=== PATIENT | female | born 1970 | race Caucasian/White ===

== ENCOUNTER 2018-09-06 13:06 | Outpatient (REF) | payer OTHER, SELFPAY ==
[2018-09-06 18:49] LABS: TSH (W/Ref FT4) 1.67 uIU/mL (0.358-3.74)
[2018-09-06 19:31] LABS: ESR 16 MM/HR (0-20)
[2018-09-06 19:36] LABS: HCG Qual (Serum) Negative
[2018-09-10 09:27] LABS: Cyclic Citrullinated Peptide <2.5 U/mL (<5.0)
[2018-09-10 13:50] LABS: ANA Interpretation Positive (NEGAT); ANA Titer Pattern 1:80 Speckled
== END 2018-09-06 13:26 ==
LOC: NCHCN 13:06
PROVIDERS: PCP Family Medicine; Visit Provider Family Medicine
DX: M53.3 Sacrococcygeal disorders, not elsewhere classified (principal); N92.6 Irregular menstruation, unspecified
CPT/HCPCS: 85652; 86200; 84443; 84703; 86038

== ENCOUNTER 2019-04-18 16:44 | Outpatient (REF) | payer OTHER, SELFPAY ==
[2019-04-18 18:56] LABS: Mean Corp. HGB Concentration 32.4 g/dL (32.0-36.0); Mean Corpuscular Hemoglobin 26.1 pg (27.0-33.0); Mean Corpuscular Volume 80.4 fL (80-95); Platelet Count 350 x1000/uL (130-400); RBC Distribution Width 13.7 % (11.7-14.6); White Blood Cell Count 9.27 k/cumm (4.4-10.8)
[2019-04-18 19:15] LABS: Ferritin 23 ng/mL (8-388)
[2019-04-18 20:42] LABS: Hemoglobin A1C 5.8 % (4.5-6.2)
[2019-04-18 20:58] LABS: Vitamin D 25 Total 34.4 ng/ml (30-100)
== END 2019-04-18 17:04 ==
LOC: NCHCN 16:44
PROVIDERS: PCP Family Medicine; Visit Provider Family Medicine
DX: D50.9 Iron deficiency anemia, unspecified (principal); R73.01 Impaired fasting glucose; E55.9 Vitamin D deficiency, unspecified
CPT/HCPCS: 82306; 85027; 82728; 83036

== ENCOUNTER 2019-05-01 00:38 | Outpatient (CLI) | payer OTHER, SELFPAY ==
--- NOTE | 2019-05-01 11:34 | DI.MAMMO_ITS ---
SYMPTOMS/DIAGNOSIS: SCREENING, PENDING SALE TO [facility], Z00.00 MAMMOGRAM: Mammograms were interpreted according to the usual protocol including computer analysis with CAD system, tomosynthesis and C view imaging. The breasts are of moderate density with fairly symmetrical distribution of fibroglandular tissue. No dominant mass or clumped microcalcification is identified in either breast. Current examination is compared with previous examinations including April 2018 and there has been no gross interval change in appearance in comparison with the previous studies. CONCLUSION: No specific evidence of malignancy at this time. Routine screening examinations are suggested at yearly intervals due to the family history of breast carcinoma. Category 1, breast density category B. MQSA ASSESSMENT OF FINDINGS: Negative. Category 1. Patient will receive a letter notifying them of these results. BI-RADS category B. There are scattered areas of fibroglandular density.
== END 2019-05-01 00:58 ==
PROVIDERS: PCP Family Medicine; Visit Provider Family Medicine
DX: Z00.00 Encounter for general adult medical examination without abnormal findings (principal); Z12.31 Encounter for screening mammogram for malignant neoplasm of breast; Z80.3 Family history of malignant neoplasm of breast
CPT/HCPCS: 77063; 77067

== ENCOUNTER 2020-04-29 18:27 | Outpatient (REF) | payer OTHER, SELFPAY ==
[2020-04-29 16:35] LABS: HCT 34.9 % (36.0-46.0); HGB 10.9 g/dL (12.0-15.5); Mean Corp. HGB Concentration 31.2 g/dL (32.0-36.0); Mean Corpuscular Hemoglobin 23.6 pg (27.0-33.0); Mean Corpuscular Volume 75.7 fL (80-95); Mean Platelet Volume 11.3 fL (8.0-11.0); Platelet Count 404 x1000/uL (130-400); RBC 4.61 m/cumm (4.00-5.20); RBC Distribution Width 14.4 % (11.7-14.6)
[2020-04-29 16:47] LABS: Calculated LDL 103 mg/dL (<100); Cholesterol 164 mg/dL (<200); Ferritin 11 ng/mL (8-252); HDL Cholesterol 50 mg/dL (40-60); TSH (W/Ref FT4) 1.32 uIU/mL (0.36-3.74); Triglyceride 57 mg/dL (<150)
== END 2020-04-29 18:47 ==
LOC: NCHCN 18:27
PROVIDERS: PCP Family Medicine; Visit Provider Family Medicine
DX: N92.0 Excessive and frequent menstruation with regular cycle (principal); D50.9 Iron deficiency anemia, unspecified; R53.83 Other fatigue
CPT/HCPCS: 80061; 85027; 82728; 84443

== ENCOUNTER 2020-05-13 01:55 | Outpatient (CLI) | payer OTHER, SELFPAY ==
--- NOTE | 2020-05-13 12:30 | DI.US_ITS ---
EXAM: US PELVIS TRANSVAGINAL CLINICAL HISTORY: LOST IUD, DYSFUNCTIONAL UTERINE BLEEDING, T83.9XXA, N93.8 TECHNIQUE: Transabdominal and transvaginal imaging was performed using standard protocol. COMPARISON: No exams were available for comparison FINDINGS: KIDNEYS: Kidneys are symmetric in size. No evidence of renal calculi. No evidence of hydronephrosis. No renal mass or cyst identified. UTERUS: Anteverted. 11.9 x 5.8 x 7 cm Endometrium: 2.4 cm. The IUD was not visualized. Myometrium: 2.3 centimeter anterior lower uterine segment fibroid. Cervix: Small nabothian cysts. OVARIES: Right: Cyst or mass: Overall 10 centimeter cyst with multiple peripheral adjacent daughter cysts. Th ere is a solid, avascular component along the wall measuring 3 x 1.3 x 1.4 cm. Left: Cyst or mass: 5 centimeter cyst with a daughter cyst and area of mural nodularity. DOPPLER: Color: Symmetric and uniform flow to both ovaries. No hyperemia. Duplex: Normal ovarian arterial waveforms visualized. CUL-DE-SAC: Free fluid: None. IMPRESSION: 1. The IUD was not identified. The endometrial stripe appears thickened. 2. Bilateral ovarian cysts, right larger than left, with solid mural components and peripheral daught er cysts. An MRI could be considered for further evaluation. DATA REPOSITORY:
== END 2020-05-13 02:15 ==
PROVIDERS: PCP Family Medicine; Visit Provider Obstetrics & Gynecology
DX: N93.8 Other specified abnormal uterine and vaginal bleeding (principal); T83.32XA Displacement of intrauterine contraceptive device, initial encounter; D25.9 Leiomyoma of uterus, unspecified; N83.291 Other ovarian cyst, right side; N83.292 Other ovarian cyst, left side
CPT/HCPCS: 76830; 76856

== ENCOUNTER 2020-06-01 01:22 | Outpatient (CLI) | payer OTHER, SELFPAY ==
--- NOTE | 2020-06-01 13:57 | DI.MAMMO_ITS ---
EXAM: MAMMO SCREENING CLINICAL HISTORY: SCREENING, Z12.39 TECHNIQUE: Mammograms were interpreted according to the usual protocol including computer analysis w ith CAD system, tomosynthesis and C-view imaging. COMPARISON: 2012 through 2018 FINDINGS: The breasts are composed of scattered fibroglandular densities, Breast Density category B. No suspicious masses or suspicious microcalcifications are seen. No skin thickening or abnormal axillary lymph nodes are seen. There has been no significant change from prior exams. IMPRESSION: BI-RADS Category 1, negative mammogram. Yearly screening mammography is recommended. Breast Density Category B, scattered fibroglandular densities.
== END 2020-06-01 01:42 ==
PROVIDERS: PCP Family Medicine; Visit Provider Family Medicine
DX: Z12.31 Encounter for screening mammogram for malignant neoplasm of breast (principal); R92.2 Inconclusive mammogram
CPT/HCPCS: 77063; 77067

== ENCOUNTER 2020-11-11 12:25 | Outpatient (REF) | payer SELFPAY ==
--- OUTSIDE RECORDS SUMMARY | 2020-11-11 12:34 | XMS_ITS ---
:1970 Author Care Team Providers Name Role Phone MATTHEW BRISENO Primary Care Provider [phone] Allergies Code Code System Name Reaction Severity Status Onset NKDA ? Medications Name Status Start Date Stop Date ? ? acetaminophen Active ? Not available ferrous gluconate 240 mg (27 mg iron) tablet Active ? Not available Take 1 tablet every day by oral route. ibuprofen 800 mg tablet Active ? Not avai lable Take 1 tablet 3 times a day by oral route. Mirapex 0.125 mg tablet Active ? Not avai lable Take 1 tablet every day by oral route in the evening. Mirena 20 mcg/24 hours (6 yrs) 52 mg intrauterine device Active ? Not available Take by intrauterine route. omeprazole 20 mg capsule,delayed release Active ? Not available Take 1 capsule every day by oral route. oxycodone Active ? Not available 5 mg as needed for pain ProAir HFA 90 mcg/actuation aerosol inhaler Active ? Not available Inhale 2 puffs every 4-6 hours by inhalation route. ProctoCare-HC 2.5 % rectal cream with applicator Active ? Not available Insert as needed by rectal route. Vitamin C 500 mg tablet Active ? Not avai lable Take 1 tablet every day by oral route. Vitamin D Active ? Not available 1000 units oral tablet 1 daily Problems Name Status Onset Date Source ? Vitamin D Deficiency Active 06/12/2020 ? Morbid Obesity Active 06/12/2020 ? Anemia Active 06/12/2020 ? Restless Legs Active 06/12/2020 ? Gastroesophageal Reflux Disease Active 06/12/2020 ? Menorrhagia Active 06/12/2020 ? Sacroiliac Joint Pain Active 06/12/2020 ? Fatigue Active 06/12/2020 ? Malaise Active 06/12/2020 ? Prediabetes Active 06/12/2020 ? IUD - Defaulted from Check Active 06/12/2020 ? Varicose Veins of Lower Extremity with Ulcer Active 05/2020 ? Obstructive Sleep Apnea Syndrome Active ? ? Procedures Date Name Performed by ? 06/12/2020 Polysomnogram Information not avai lable Results Lab Results None recorded. Past Encounters 10/19/2020 Obstructive Sleep Apnea Syndrome Jessica Biggs FUR FINISHER SEAMSTRESS: [address], [place] [address], Ph. 06/12/2020 Obstructive Sleep Apnea Syndrome; Restle ss Legs Jessica Biggs F[employer] FINISHER SEAMSTRESS: [address], [place] [address], Ph. Social History Tobacco Smoking Status Never Smoker Vaccine List None recorded. Plan of Care Reminders Provider Appointments None ? ? recorded. Lab None ? ? recorded. Referral None ? ? recorded. Procedures None ? ? recorded. Surgeries None ? ? recorded. Imaging None ? ? recorded. Vitals 10/19/2020 01:15PM Office 30 Height Weight BMI Blood Pressure 160.02 cm 119.75 kg 46.8 kg/m2 140/68 mm[Hg] 06/12/2020 09:30AM New Patient 47 Height Weight BMI Blood Pressure 160.02 cm 118.57 kg 46.3 kg/m2 141/72 mm[Hg]
--- OUTSIDE RECORDS SUMMARY | 2020-11-11 12:34 | XMS_ITS | Encounter Summary ---
:1970 Author Care Team Providers Name Role Phone Tessie Phelps Primary Care Provider [phone] Reason for Visit None recorded. Assessment and Plan 1. Obstructive sleep apnea syndr ome JOAQUIN diagnosed in 2010 with an AHI of 10.9/hr. She had been treated with both CPAP and an oral appliance in the past but was untreated for years. She had very poor tolerance the the oral applia nce. She had a repeat PSG 07/08/20 with an AHI of 7.9/hr. She recently started back on CPAP 6-16 cm and has excellent compliance and reduction in AHI. She has noted her snoring is gone with CPAP and she i s feeling better rested. Continued use o f CPAP is recommended. She is encouraged to keep up with the routine maintenance of the machine and to clean and replace parts as indicated. I will see her back i n one year. She is asked to call the i jeremiah for any sleep related questions or concerns. I provided greater than 25 minutes in th e care of this patient, more than half the time was spent in [id number] counseling. Discussion Note: None recorded.Patient educational handouts: No information available. Plan of Care Reminders Provider Appointments Office 30 10/18/2021 Garrison Biggs, 12:30PM CALLISTHENICS INSTRUCTOR Lab None ? ? recorded. Referral None ? ? recorded. Procedures None ? ? recorded. Surgeries None ? ? recorded. Imaging None ? ? recorded. Medications Name Start Date ? ? acetaminophen ? ferrous gluconate 240 mg (27 mg iron) tablet ? Take 1 tablet every day by oral route. ibuprofen 800 mg tablet ? Take 1 tablet 3 times a day by oral route. Mirapex 0.125 mg tablet ? Take 1 tablet every day by oral route in the evening. Mirena 20 mcg/24 hours (6 yrs) 52 mg intrauterine evens ce ? Take by intrauterine route. omeprazole 20 mg capsule,delayed release ? Take 1 capsule every day by oral route. oxycodone ? 5 mg as needed for pain ProAir HFA 90 mcg/actuation aerosol inhaler ? Inhale 2 puffs every 4-6 hours by inhalation route. ProctoCare-HC 2.5 % rectal cream with applicator ? Insert as needed by rectal route. Vitamin C 500 mg tablet ? Take 1 tablet every day by oral route. Vitamin D ? 1000 units oral tablet 1 daily Medications Administered None recorded. Vitals Height Weight BMI Blood Pressure 5 ft 3 in 264 lbs 46.8 kg/m2 140/68 mm[Hg] Results Lab Results None recorded. Allergies Code Code System Name Reaction Severity Onset NKDA ? ? ? Problems Name Status Onset Date Source ? [...] Sleep Apnea Syndrome Active ? ? Procedures None recorded. Vaccine List None recorded. Social History Tobacco Smoking Status Never Smoker Hard of hearing or deaf in one or N both ears? Alcohol intake None Live alone or with others? with others Notes: wit h and 2 sons Animal exposure? Y Notes: cat and do g Caffeine intake Occasional Notes: tea 1 cup a day Are you currently employed? 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 Past Encounters 10/19/2020 Obstructive Sleep Apnea Syndrome Jessica Biggs, CALLISTHENICS INSTRUCTOR: [address] [place] [address], Ph. History of Present Illness Note: <p>Veronica Maria Ines has a visit for PSG results.</p><p>
</p><p>Veronica was seen by me on 06/12/20. She has a medical history to include morbid obesity, pre-DM, vitamin D deficiency, varicose veins, RLS, GERD, anemia, SI joint pain and JOAQUIN. PSG 06/23/11 (BMI 44.8), AHI 10.9/hr, REM AHI 39.1/hr, sp02 toni 89%, PLMi 1.7/hr. Titration 07/29/11 (BMI 44.8), CPAP 14 cm was successful but only very brief REM seen at this setting, PLMi 1.6/hr, CPAP 14-18 cm recommended. Oral appliance adjustment study 08/02/13 (BMI 45.5), appliance at 18 turns with some residual events, there was lateral REM at this setting.</p><p>
</p><p>Last visit Veronica reported had not treated her sleep apnea in many years. She didn't like the CPAP mask because the irritated her nose and the CPAP was noisy so she got sick of using it. She tried an appliance and didn't like it at all, she found it very uncomfortable and never wants to use one again.</ p><p>
</p><p>She noted symptoms of restless sleep, daytime fatigue, and snoring. 07/20/2020: PSG 07/08/2020 (BMI 46.23), AHI 7.9/hr, REM AHI 29.7/hr, sp02 toni 84%, PLMi 0/hr, CPAP 6-16 cm ordered on 07/20/20.</p><p>
</p><p>Veronica tells me she has been using CPAP every night. She is using an [place] View and likes this better than masks she has used in the past. When she gets a hot flash she sometimes has to remove it. She says she tries toget at least 5-6 hours of use each night and once she reaches that she removes. The air pressure feels fine at times and other times like it is too strong so she has to use the ramp. She is not waking finding the pressure too high. She is no longer snoring with CPAP and her is now sleeping better She thinks she is feeling more rested since starting CPAP as well. She was just started on [place] [facility] and hopes to see improvement within a week or so. </p><p>
& lt;/p><p>
</p><p>ESS today 02/27</p><p>COMPLIANCE REVIEW: {{09/19/20-10/18/20# DATES}}, Used {{30# 25 30}}/30 days, average use {{6# 5 6}} hours {{3# number}} minutes a night, mean pressure {{8.4# 8 9}}cm, 90 th percentile pressure {{10.5# 9 10}}cm, time in large air leak {{0# 5 10}} minutes, AHI {{1 * 2}}/hour.</p>Review of Systems: ROS as noted in the HPI Review of Systems None recorded. Physical Exam ? Notes: <p>General: A&O, well groome d {{over weight obese * morbidly obese normal weight thin}}.
HEAD: no rmocephalic & atraumatic.
EYES: non icteric.
LUNGS: CTA all f ields. Good air movement.
CARDIO: RRR without murmur, gallop or thrill.
NEURO: A&O. Normal gait.
PSYCH: Normal mood and affect.
CUTANEOUS: no overt lesions or rashes</p>
[2020-11-11 14:18] LABS: Calculated LDL 111 mg/dL (<100); Cholesterol 177 mg/dL (<200); HDL Cholesterol 56 mg/dL (40-60); Triglyceride 51 mg/dL (<150)
[2020-11-11 14:37] LABS: Hemoglobin A1C 5.9 % (<5.7)
== END 2020-11-11 12:45 ==
LOC: NCHCN 12:25
PROVIDERS: PCP Family Medicine; Visit Provider Family Medicine
DX: Z00.00 Encounter for general adult medical examination without abnormal findings (principal); R73.03 Prediabetes; Z13.220 Encounter for screening for lipoid disorders
CPT/HCPCS: 80061; 83036

== ENCOUNTER 2021-07-02 15:13 | Outpatient (REF) | payer OTHER, SELFPAY ==
--- NOTE | 2021-07-02 15:30 | PAPFT_PTH ---
PATIENT: Veronica Spann LOC: [facility]#:[id number] AGE/SX: 50/F ROOM: RE07/02/[address]: Tessie Phelps : 1970 BED: DIS: 07/02/2021 SPEC #: [id number] RECD: 07/05/21 12:48 STATUS: FERNANDO REDebbi #: [id number] DHRUV: 07/02/21 15:[address]: Tessie Phelps DEPT: [facility] Cytology RECD BY: Ayesha Blackman Tissues: 1 - CX/ENDOCX FOR PAP SMEARS Procedures: PAP THIN PREP/UVM Screening HPV DNA PROBE Comments: [id number]
[2021-07-02 21:16] LABS: HGB 13.5 g/dL (11.2-15.7); MCH 26.4 pg (27.0-33.0); MCHC 31.4 % (32.0-36.0); MPV 10.9 fL (8.0-11.0); Platelet Count 355 10^3/uL (130-400); RBC 5.12 10^6/uL (3.93-5.22); RDW 12.9 % (11.7-14.6); RDW-SD 39.4 fL; WBC 10.01 10^3/uL (4.4-10.8)
[2021-07-02 21:33] LABS: ALT 40 U/L (14-59); AST 29 U/L (15-37); Albumin 3.9 g/dL (3.4-5.0); Alkaline Phosphatase 107 U/L (46-116); Anion Gap 9.1 mmol/L (3-11); BUN 16 mg/dL (7-18); Bilirubin, Total 0.3 mg/dL (0.2-1.0); CO2 26.9 mmol/L (21.0-32.0); CREATININE 0.9 mg/dL (0.55-1.02); Calcium 9.3 mg/dL (8.5-10.1); Chloride 106 mmol/L (98-107); Glucose 119 mg/dL (74-106); Potassium 4.3 mmol/L (3.5-5.1); Sodium 142 mmol/L (136-145); TSH (W/Ref FT4) 1.87 uIU/mL (0.36-3.74); Total Protein 7.2 g/dL (6.4-8.2)
[2021-07-02 22:15] LABS: Ferritin 67 ng/mL (8-252); Folate 18.7 ng/mL (8.6-20.0); Vitamin B12 393 pg/mL (193-986)
[2021-07-05 02:42] LABS: Vitamin D 25 Total 47.5 ng/mL (30-100)
[2021-07-05 10:13] LABS: Hepatitis C Ab w Rflx HCV PCR Negative (Negative)
[2021-07-05 10:29] LABS: HIV-1/2 Ag & Ab Screen Negative (Negative)
== END 2021-07-02 15:14 | disposition home or self-care (01) ==
LOC: NCHCN 15:13
PROVIDERS: PCP Family Medicine; Visit Provider Family Medicine
DX: D64.9 Anemia, unspecified (principal); R53.83 Other fatigue; R73.03 Prediabetes; E55.9 Vitamin D deficiency, unspecified; Z00.00 Encounter for general adult medical examination without abnormal findings; Z12.4 Encounter for screening for malignant neoplasm of cervix; Z11.51 Encounter for screening for human papillomavirus (HPV)
CPT/HCPCS: 80053; 82306; 85027; 86803; 87389; 88142; 82607; 82728; 82746; 83036; 84443; 87624

== ENCOUNTER 2021-07-13 02:37 | Outpatient (CLI) | payer OTHER, SELFPAY ==
--- NOTE | 2021-07-13 | DI.MAMMO_ITS ---
Exam(s) MAMMO SCREENING EXAM: MAMMO SCREENING CLINICAL HISTORY: SCREENING,Z12.39 TECHNIQUE: Mammograms were interpreted according to the usual protocol including computer analysis w [employer] CAD system, tomosynthesis and C-view imaging. COMPARISON: 2012 through 2019 FINDINGS: The breasts are composed of mainly fatty density , Breast Density category A. No suspicious masses or suspicious microcalcifications are seen. No skin thickening or abnormal axillary lymph nodes are seen. There has been no significant change from prior exams. IMPRESSION: BI-RADS Category 1, Negative mammogram Yearly screening mammography is recommended. Breast Density - Category A, fatty density. A negative radiographic report should not delay biopsy if a dominant or clinically suspicious mass is present. Up to ten percent of cancers are not identified on mammography. A negative report may reinforce clinical impression. Adenosis and dense breasts may obscure an underlying neoplasm. False positive reports average 6 to 10%. Patient will receive a letter notifying them of these results.
== END 2021-07-13 02:57 ==
PROVIDERS: PCP Family Medicine; Visit Provider Family Medicine
DX: Z12.31 Encounter for screening mammogram for malignant neoplasm of breast (principal)
CPT/HCPCS: 77063; 77067

== ENCOUNTER 2021-07-28 12:22 | Outpatient (REF) | payer OTHER, SELFPAY ==
[2021-07-28 20:15] LABS: Vitamin B12 711 pg/mL (193-986)
== END 2021-07-28 12:23 | disposition home or self-care (01) ==
LOC: NCHCN 12:22
PROVIDERS: PCP Family Medicine; Visit Provider Family Medicine
DX: R53.83 Other fatigue (principal)
CPT/HCPCS: 82607

== ENCOUNTER 2021-09-17 01:14 | Outpatient (CLI) | payer OTHER, SELFPAY ==
--- NOTE | 2021-09-17 09:36 | DI.RAD_ITS ---
Exam(s) XR CHEST 2V PA LATERAL EXAM: XR CHEST 2V PA LATERAL CLINICAL HISTORY: COUGH, R05, NEG FOR COVID TECHNIQUE: 2D digital imaging was performed. COMPARISON: No exams were available for comparison FINDINGS: The heart is not enlarged. The lungs are clear and well expanded. No pleural effusion seen. Mediastin al contours appear intact. IMPRESSION: Normal chest. RADIATION DOSE DELIVERED: Total DLP
== END 2021-09-17 01:34 ==
PROVIDERS: PCP Family Medicine; Visit Provider Family Medicine
DX: R05.8 Other specified cough (principal)
CPT/HCPCS: 71046

== ENCOUNTER 2021-11-24 15:16 | Outpatient (REF) | payer OTHER, SELFPAY ==
[2021-11-24 15:41] LABS: Anion Gap 9.6 mmol/L (3-11); BUN 15 mg/dL (7-18); CO2 26.4 mmol/L (21.0-32.0); CREATININE 0.8 mg/dL (0.55-1.02); Calcium 9.6 mg/dL (8.5-10.1); Chloride 103 mmol/L (98-107); Glucose 95 mg/dL (74-106); Potassium 4.5 mmol/L (3.5-5.1); Sodium 139 mmol/L (136-145)
== END 2021-11-24 15:17 | disposition home or self-care (01) ==
LOC: NCHCN 15:16
PROVIDERS: PCP Family Medicine; Visit Provider Family Medicine
DX: I10 Essential (primary) hypertension (principal)
CPT/HCPCS: 80048

== ENCOUNTER 2022-03-02 03:57 | Outpatient (CLI) | payer OTHER, SELFPAY ==
[2022-03-02 11:38] LABS: Source Nasal/Nares
[2022-03-02 15:25] LABS: COVID-19 PCR Negative (Negative)
== END 2022-03-02 03:58 | disposition home or self-care (01) ==
LOC: LBO 03:57
PROVIDERS: PCP Family Medicine; Visit Provider Surgery
DX: Z20.822 Contact with and (suspected) exposure to COVID-19 (principal); Z01.818 Encounter for other preprocedural examination
CPT/HCPCS: 87635

== ENCOUNTER 2022-03-04 13:05 | Day surgery (SDC) | payer OTHER, SELFPAY ==
--- NOTE | 2022-03-03 14:50 | W.COLOREPORT ---
Colonoscopy Report Pre-op diagnosis general: CRC screening Post-op diagnosis procedure note: other (polyps x2) Surgeon: Marisol Lucio Anesthesia Type: General:No Airway Estimated blood loss (mL): 1 Pathology: other Complications: None Disposition: same day Prep: Miralax/Dulcolax Retraction Time: 10 Procedure Description: After informed consent was obtained the patient was taken to the procedure room and placed in a left decubitous position. Monitors were applied and a time out was done. The patients name, date of , procedure, allergies to medications and metal in their body was reviewed. The patient was then sedated. Once sedated and comfortable a rectal exam was done. External exam was normal. Minor external hemorrhoids.Internal exam revealed a normal sphincter tone and no palpable masses. The scope was then introduced and retrofelexed. No internal hemorrhoids were identified. The scope was then advanced to the cecum without on the cecum difficulty. The TI and appendiceal orifice were identified. The prep was BPS 3 in the rectosigmoid and transverse colon, and a BPS and 1 in cecum and right colon. At the scope was then slowly retracted over 10 minutes back into the rectum. Two flat, 0.5 cm polyps were removed with a cold biting forcep. 1 at 50 cm, and 1 at 80 cm. All specimens are retrieved and no bleeding is noted. There are no diverticula or AVMs noted. The mucosa is pink and healthy, with a normal vascular pattern. Tt scope was removed and the patient was woken up and taken back to Same day surgery in stable condition. The patient tolerated the procedure well and there were no immediate complications. Follow up: The patient should follow up in 7-10 years unless they develop changes in bowel habits or other new gastrointestinal complaints.
--- NOTE | 2022-03-03 14:51 | PDOC.DSDIS_ITS ---
Discharge Plan Disposition Patient Disposition: HOME Condition: Good Discharge Details Reason For Visit: colon scope Attending Provider: Marisol Lucio Primary Care Provider: Tessie Phelps Home Meds and New Rx's Prescriptions: Continued ibuprofen [Motrin IB] 200 mg tablet 200 mg PO QID PRN0RF cholecalciferol (vitamin D3) 400 unit capsule 400 unit PO DAILY 0RF omeprazole 20 mg tablet,delayed release (DR/EC) 20 mg PO DAILY 0RF ferrous sulfate [Feosol] 325 mg (65 mg iron) tablet 325 mg PO DAILY 0RF metformin 1,000 mg tablet 1,000 mg PO DAILY 0RF losartan 50 mg tablet 50 mg PO DAILY 0RF cyanocobalamin (vitamin B-12) 1,000 mcg capsule 1,000 mcg PO DAILY 0RF hydrocortisone 2.5 % cream with applicator 1 applic OR DAILY PRN 0RF pramipexole [Mirapex] 0.125 mg tablet 0.25 mg PO QHS 0RF albuterol sulfate [ProAir HFA] 90 mcg/actuation HFA aerosol inhaler 2 puff inhalation Q6H PRN0RF Discontinued polyethylene glycol 3350 17 gram/dose powder 238 g PO ONCE Qty: 238 0RF Rx Instructions: take per colonoscopy instructions bisacodyl [Dulcolax (bisacodyl)] 5 mg tablet,delayed release (DR/EC) 5 mg PO ONCE Qty: 4 0RF Rx Instructions: take per colonoscopy instructions Discharge Instructions Additional Instructions: DSU Colonoscopy Post- Op Instructions Instructions for Everyone who is given Anesthesia: For your safety, please do the following for the next twenty-four (24) hours: *Do Not operate a motor vehicle (car, truck, motorcycle, etc.) *Do Not drink alcoholic beverages or use any recreational drugs for the first 24 hours or while taking pain medications. The medications in your body may have a reaction that can be dangerous. *Do Not make any important decisions or sign any important papers. Findings: x2 small polyps Follow up: My office will send a letter in 2 to 3 weeks time, detailing as to what type of polyps they are and when we want you to repeat the colonoscopy, probably in 7 years time. 1. No lifting over 20 pounds or strenuous activity for the first 24 hours after your procedure. After 24 hours there are no restrictions on your activity but you may feel fatigued for a few days. 2. After you arrive home you may have a light meal and return to your normal diet as you can tolerate it without feeling sick to your stomach. 3. You may have a bloated, gaseous feeling in your belly (abdomen) after a colonoscopy. Passing gas and belching will help. Walking or lying down on your left side with your knees flexed may relieve the discomfort. Call the office at [phone] (Office) or [phone] (Hospital) right away if you notice any of the following: a.Vomiting of blood or ?coffee ground stools?. b.Rectal bleeding 1Tbsp, blood clots or continuous bleeding. c.Severe belly (abdominal) pain. d.A hard distended belly (abdomen) and an inability to pass gas. 4. Please don?t expect to have a normal BM (bowel movement) for 2-3 days after your procedure. 5. If there are questions regarding the findings of your procedure, please contact your doctor 6. If you are unable to contact your doctor with a problem, contact the hospital at [phone]. 7. Continue all your regular medications unless directed otherwise. I understand the above instructions and have no questions. Signature of Patient or Adult Escort Name of Responsible Adult Escort Signature of Nurse Date/Time Activity:: see above Diet:: see above Discharge Orders Discharge Orders: Discharge Order (Routine); Ordered 03/03/22 Ordered By: Marisol Lucio
--- NOTE | 2022-03-04 13:08 | W.ANESPRE ---
General Info Date of Service Date Performed: 03/04/22 Height: 5 ft 2 in Weight: 124.738 kg Body Mass Index (BMI): 50.3 Surgical Procedure: Operation Date: 03/04/22 12:50 Proposed Procedure Side Surgeon joanna Lucio, DO Meds Allergies and Home Medications Allergies Allergy/AdvReac Type Severity Reaction Status Date / Time No Known Allergies Allergy Verified 03/04/22 13:28 Home Medication Medication Instructions Recorded cholecalciferol (vitamin D3) 10 400 unit PO DAILY 10/09/18 mcg (400 unit) capsule ferrous sulfate 325 mg (65 mg 325 mg PO DAILY tab 10/09/18 iron) tablet (Feosol) ibuprofen 200 mg tablet (Motrin IB) 200 mg PO QID PRN 10/09/18 omeprazole 20 mg tablet,delayed 20 mg PO DAILY 10/09/18 release albuterol sulfate 90 mcg/actuation 2 puff INHALATION Q6H PRN 08/06/21 aerosol inhaler (ProAir HFA) cyanocobalamin (vitamin B-12) 1,000 mcg PO DAILY 08/06/21 1,000 mcg capsule hydrocortisone 2.5 % rectal cream 1 applic OR DAILY PRN 08/06/21 with applicator pramipexole 0.125 mg tablet 0.25 mg PO QHS tab 08/06/21 (Mirapex) losartan 50 mg tablet 50 mg PO DAILY 02/25/22 metformin 1,000 mg tablet 1,000 mg PO DAILY 02/25/22 Current Visit Medications: Current Medications Generic Name Dose Route Start Last Admin Trade Name Freq PRN Reason Stop Dose Admin Hyoscyamine Sulfate 0.125 mg 03/03/22 14:49 Hyoscyamine 0.125 Mg Sl/Oral/Chew SL DIRECTED PRN Ringer's Solution 1,000 mls @ 80 mls/hr 03/04/22 06:00 IV 03/05/22 23:59 [facility] IV Miscellaneous Supplies 1 each 03/04/22 06:00 Iv Access IV 03/05/22 23:59 DIRECTED [facility] Ondansetron HCl 4 mg 03/03/22 14:49 Ondansetron 4 Mg/2 Ml Vial IVP Q4H PRN PRN Nausea / Vomiting Sodium Chloride 0 ml 03/04/22 06:00 Normal Saline Flush 10 Ml Syr IV 03/05/22 23:59 PRN PRN Sodium Chloride 0 ml 03/04/22 06:00 Normal Saline 10 Ml Vial IJ 03/05/22 23:59 DIRECTED PRN Sterile Water 0 ml 03/04/22 06:00 Water,Injection,Sterile 10 Ml Vial IJ 03/05/22 23:59 DIRECTED PRN PFSH Active Problems Active Problems: Problem Status Onset Code GERD (gastroesophageal reflux disease) K21.9 Morbid obesity E66.01 Prediabetes R73.03 Anemia D64.9 Fatigue R53.83 Seasonal allergies J30.2 Nausea R11.0 Family history of colon cancer Z80.0 Ovarian cystic mass N83.209 IUD complication T83.9XXA DUB (dysfunctional uterine bleeding) N93.8 Anemia, iron deficiency D50.9 Varicose vein of leg I83.90 Sacroiliac joint pain M53.3 Menorrhagia N92.0 IUD surveillance 10/05/18 Z30.431 Medical History Medical History JOAQUIN (obstructive sleep apnea) Restless leg syndrome Medical History Comments:: Per pt. states when she is under anesthesia she Stops breathing, thinks it is releated to JOAQUIN. Surgical History Surgical History (Updated 03/04/22 @ 13:27 by Patricia Ding) H/O bilateral salpingo-oophorectomy Tobacco Smoking/Tobacco Use Status: Never Passive smoking exposure: No Alcohol Alcohol Intake: never Substance Use Substance use type: does not use Vital Signs and Lab Results Lab Results Blood Type / Crossmatch: No Data to Display Complete Blood Count: No Data to Display Complete Metabolic Panel: No Data to Display Liver Function Panel: No Data to Display Coagulation Panel: No Data to Display Cardiac Panel: No Data to Display Arterial Blood Gas: No Data to Display Venous Blood Gas: No Data to Display Pancreas Panel: No Data to Display Thyroid Panel: No Data to Display Infectious Disease: Coronavirus (COVID-19)(PCR) Negative (Negative) 03/02/22 11:25 03/02/22 Coronavirus 2019 Source Nasal/Nares 03/02/22 11:25 03/02/22 Blood Cultures: No Data to Display Toxicology Panel: No Data to Display Panel: No Data to Display Anesthesia Assessment and Plan Anesthesia History Personal History: No History of Anesthesia Complications and Other Family History: No Family History of Anesthesia Complications Exercise Tolerance Exercise Tolerance: Metabolic Equivalents>4 Pertinent Negatives Pertinent Negatives: Other (Well controlled) Cardiac & Pulmonary Exam Cardiac Exam: Normal S1/S2 Heart Sounds Pulmonary Exam: Clear Bilateral Breath Sounds Implantable Cardiac Device Does patient have a Pacemaker or an ICD?: No Airway Exam Known Difficult Airway: No Mallampati Class: 3 Mouth Opening: Normal (> 3cm) Thyromental Distance: Greater than 3 cm Neck Range of Motion: Full ROM Neck Circumference: Thick Teeth Condition: Normal Dentition ASA Classification ASA Score: ASA 3 Emergency Case?: No NPO Status NPO Status: NPO Clears >2 hours, Solids >8 hours Status Status: Not Relevant due to Medical History Anesthesia Plan Resuscitation Status: Full Code Anesthesia Technique: General Anesthesia Airway Planned: Natural Airway Monitors Used: Standard Monitors
[2022-03-04 13:20] VITALS: BP 140/77; PULSE 73; RESP 18; TEMP 37; O2SAT 99
[2022-03-04] MEDS: Lactated Ringers 1,000 ML 80 ML IV (13:45)
[2022-03-04 13:48] VITALS: BMI 50.3
--- NOTE | 2022-03-04 14:04 | BOWEL_PTH ---
PATIENT: Veronica Spann LOC: [facility] U#:[id number] AGE/SX: 51/F ROOM: RE03/04/[address]: Marisol Lucio : 1970 BED: DIS: 03/04/2022 SPEC #: [id number] RECD: 03/04/22 17:28 STATUS: FERNANDO REDebbi #: [id number] DHRUV: 03/04/22 14:[address]: Marisol Lucio DEPT: Surgical Specimen RECD BY: Ayesha Blackman ENTERED: 03/04/22 17:29 SP TYPE: Bowel OTHR DR: Tessie Phelps Tissues: 1 - BIOPSY BOWEL 2 - BIOPSY BOWEL Procedures: GROSS AND MICRO LEVEL 4 Comments: [id number]
[2022-03-04 14:29] VITALS: BP 126/76; PULSE 73; RESP 16; TEMP 36.2; O2SAT 98
--- NOTE | 2022-03-04 14:35 | W.ANESPOSTOP ---
Postoperative Evaluation Date, Time and Location Date Performed: 03/04/22 Time Performed: 14:36 Patient Location: Day Surgery Unit Vital Signs Most Recent Imported Vital Signs: Most Recent Vital Signs Temp Pulse Resp BP Pulse Ox 37 C 73 18 140/77 99 03/04/22 13:20 03/04/22 13:20 03/04/22 13:20 03/04/22 13:20 03/04/22 13:20 Most Recent Manually Entered Vital Signs: Adult Blood Pressure: 126/76 Heart Rate: 73 Respirations: 16 Oxygen Saturation (%): 98 Temperature (C): 36.2 C Pain Score (0-10 Scale): 0 Assessment Mental Status: Awake (Alert & Oriented to Patient Baseline) Airway and Respiratory Function: Patent airway with normal (patient baseline) respiratory exam Cardiovascular Function: Hemodynamically Stable Hydration Status: Adequately Hydrated Nausea & Vomiting: No Nausea or Vomiting Pain: Pt. Denies Any Pain Peripheral Nerve Block: Patient did not receive a nerve block
[2022-03-04 14:38] VITALS: BP 126/76; PULSE 73; RESP 16; TEMPC 36.2; O2SAT 98
[2022-03-04 15:00] VITALS: BP 132/80; PULSE 73; RESP 16; TEMP 36; O2SAT 97
== END 2022-03-04 15:19 | disposition home or self-care (01) ==
LOC: SUR 13:06
PROVIDERS: PCP Family Medicine; Visit Provider Surgery
PROC: 0DJD8ZZ Inspection of Lower Intestinal Tract, Via Natural or Artificial Opening Endoscopic (ICD-10-PCS; CPT 45378; principal; 2022-03-04 12:45)
DX: Z12.11 Encounter for screening for malignant neoplasm of colon (principal); K63.5 Polyp of colon; Z80.0 Family history of malignant neoplasm of digestive organs; G47.33 Obstructive sleep apnea (adult) (pediatric); K64.4 Residual hemorrhoidal skin tags; R73.03 Prediabetes; D50.9 Iron deficiency anemia, unspecified; K63.89 Other specified diseases of intestine
CPT/HCPCS: 45380; 88305

== ENCOUNTER 2022-07-06 13:20 | Outpatient (REF) | payer OTHER, SELFPAY ==
[2022-07-06 17:57] LABS: Ferritin 105 ng/mL (8-252); Vitamin B12 316 pg/mL (193-986)
[2022-07-06 18:13] LABS: HCT 40.9 % (36.0-46.0); HGB 13.5 g/dL (11.2-15.7); MCH 27.1 pg (27.0-33.0); MCV 82 fL (80-95); MPV 11.4 fL (8.0-11.0); Platelet Count 327 10^3/uL (130-400); RBC 4.99 10^6/uL (3.93-5.22); RDW 12.3 % (11.7-14.6); RDW-SD 36.8 fL; WBC 9.37 10^3/uL (4.4-10.8)
[2022-07-06 19:21] LABS: Hemoglobin A1C 6.1 % (<5.7)
== END 2022-07-06 13:21 | disposition home or self-care (01) ==
LOC: NCHCN 13:20
PROVIDERS: PCP Family Medicine; Visit Provider Family Medicine
DX: E53.8 Deficiency of other specified B group vitamins (principal); R20.2 Paresthesia of skin; D50.9 Iron deficiency anemia, unspecified; R73.03 Prediabetes
CPT/HCPCS: 85027; 82607; 82728; 83036

== ENCOUNTER → 2022-08-08 02:05 | Outpatient (CLI) | payer OTHER, SELFPAY ==
--- NOTE | 2022-08-08 | DI.US_ITS ---
Exam(s) US ABDOMEN EXAM: US ABDOMEN CLINICAL HISTORY: EPIGASTRIC PAIN R10.13 NAUSEA R11.0 TECHNIQUE: Ultrasound abdomen performed using standard protocol. COMPARISON: None FINDINGS: LIVER: Enlarged at 20 cm. Markedly increased echogenicity and decreased through transmission consist ent with severe hepatic steatosis. Large portions of the liver are not visible. GALLBLADDER: There is a 2.6 cm nonmobile stone seen at the gallbladder neck. No evidence of wall thi ckening. No pericholecystic fluid identified. PATEL'S SIGN: Negative. BILIARY SYSTEM: No intrahepatic or extrahepatic biliary ductal dilation. KIDNEYS: Kidneys are symmetric in size. No evidence of renal calculi. No evidence of hydronephrosis. No renal mass or cyst identified. PANCREAS: Partially obscured by bowel gas. Normal where visualized. SPLEEN: Not enlarged. ABDOMINAL AORTA AND IVC: Visualized portions normal caliber. ASCITES: None seen. IMPRESSION: Marked of headache steatosis. 2.6 centimeter nonmobile gallstone in gallbladder neck. DATA REPOSITORY:
--- NOTE | 2022-08-08 | DI.MAMMO_ITS ---
Exam(s) MAMMO SCREENING EXAM: MAMMO SCREENING CLINICAL HISTORY: SCREENING FOR BREAST CANCER Z12.39 TECHNIQUE: Mammograms were interpreted according to the usual protocol including computer analysis w [employer] CAD system, tomosynthesis and C-view imaging. COMPARISON: 2012 through 2020 FINDINGS: The breasts are composed of mainly fatty density , Breast Density category A. No suspicious masses or suspicious microcalcifications are seen. No skin thickening or abnormal axillary lymph nodes are seen. There has been no significant change from prior exams. IMPRESSION: BI-RADS Category 1, Negative mammogram Yearly screening mammography is recommended. Breast Density - Category A, fatty density. A negative radiographic report should not delay biopsy if a dominant or clinically suspicious mass is present. Up to ten percent of cancers are not identified on mammography. A negative report may reinforce clinical impression. Adenosis and dense breasts may obscure an underlying neoplasm. False positive reports average 6 to 10%. Patient will receive a letter notifying them of these results.
== END ==
PROVIDERS: PCP Family Medicine; Visit Provider Family Medicine
DX: Z12.31 Encounter for screening mammogram for malignant neoplasm of breast (principal); R10.13 Epigastric pain; R11.0 Nausea; K76.0 Fatty (change of) liver, not elsewhere classified; K80.20 Calculus of gallbladder without cholecystitis without obstruction
CPT/HCPCS: 77063; 77067; 76700

== ENCOUNTER 2022-09-16 06:27 | Day surgery (SDC) | payer OTHER, SELFPAY ==
[2022-09-16] VITALS (8 sets, daily range): BP systolic 113–130; BP diastolic 43–69; PULSE 70–79; RESP 16–21; TEMP 36–37.2; O2SAT 94–100; BMI 48.1
--- NOTE | 2022-09-16 05:04 | W.ANESPRE ---
General Info Date of Service Date Performed: 09/16/22 Height: 5 ft 2.5 in Weight: 121.223 kg Body Mass Index (BMI): 48.1 Surgical Procedure: Operation Date: 09/16/22 07:40 Proposed Procedure Side Surgeon p Cholecystectomy Laparoscopic Kiko Pastor MD Meds Allergies and Home Medications Allergies Allergy/AdvReac Type Severity Reaction Status Date / Time oxycodone AdvReac Intermediate Nausea Verified 09/16/22 06:45 Home Medication Medication Instructions Recorded ibuprofen 200 mg tablet (Motrin IB) 200 mg PO QID PRN 10/09/18 omeprazole 20 mg tablet,delayed 20 mg PO DAILY 10/09/18 release albuterol sulfate 90 mcg/actuation 2 puff inhalation Q6H PRN 08/06/21 aerosol inhaler (ProAir HFA) cyanocobalamin (vitamin B-12) 1,000 mcg PO DAILY 08/06/21 1,000 mcg capsule hydrocortisone 2.5 % rectal cream 1 applic [place] DAILY PRN 08/06/21 with applicator pramipexole 0.125 mg tablet 0.25 mg PO QHS 08/06/21 (Mirapex) losartan 50 mg tablet 50 mg PO HS 02/25/22 ascorbate calcium (vitamin C) 500 500 mg PO DAILY 08/15/22 mg tablet candesartan 16 mg tablet 16 mg PO HS 08/15/22 cholecalciferol (vitamin D3) 25 25 mcg PO DAILY 08/15/22 mcg (1,000 unit) capsule ferrous gluconate 240 mg (27 mg 240 mg PO DAILY 08/15/22 iron) tablet levonorgestrel-ethinyl estradiol 1 tab PO HS 08/15/22 0.1 mg-20 mcg tablet (Vienva) metformin 500 mg tablet 500 mg PO DAILY 08/15/22 Current Visit Medications: Current Medications Generic Name Dose Route Start Last Admin Trade Name Freq PRN Reason Stop Dose Admin Acetaminophen 1,000 mg 09/16/22 06:00 Acetaminophen 500 Mg Tab PO 10/15/22 23:59 PREOP AMIRAH Celecoxib 200 mg 09/16/22 06:00 Celecoxib 200 Mg Cap PO 10/15/22 23:59 PREOP AMIRAH Gabapentin 600 mg 09/16/22 06:00 Gabapentin 300 Mg Cap PO 10/15/22 23:59 PREOP AMIRAH Ringer's Solution 1,000 mls @ 80 mls/hr 09/16/22 06:00 IV 10/15/22 23:59 INFUSION AMIRAH Cefazolin Sodium/Dextrose 2 gm in 50 mls @ 100 mls/hr 09/16/22 06:00 Ancef Duplex IVPB 10/15/22 23:59 PREOP AMIRAH IV Miscellaneous Supplies 1 each 09/16/22 06:00 Iv Access IV 10/15/22 23:59 DIRECTED AMIRAH Sodium Chloride 0 ml 09/16/22 06:00 Normal Saline Flush 10 Ml Syr IV 10/15/22 23:59 PRN PRN Sodium Chloride 0 ml 09/16/22 06:00 Normal Saline 10 Ml Vial IJ 10/15/22 23:59 DIRECTED PRN Sterile Water 0 ml 09/16/22 06:00 Water,Injection,Sterile 10 Ml Vial IJ 10/15/22 23:59 DIRECTED PRN PFSH Active Problems Active Problems: Problem Status Onset Code Hypertension I10 Abdominal pain R10.9 Cholelithiasis K80.20 Fatty infiltration of liver K76.0 Hyperplastic colon polyp ~03/04/22 K63.5 IUD surveillance 10/05/18 Z30.431 Menorrhagia N92.0 Sacroiliac joint pain M53.3 Varicose vein of leg I83.90 Anemia, iron deficiency D50.9 DUB (dysfunctional uterine bleeding) N93.8 IUD complication T83.9XXA Ovarian cystic mass N83.209 Family history of colon cancer Z80.0 Nausea R11.0 Seasonal allergies J30.2 Fatigue R53.83 Anemia D64.9 Prediabetes R73.03 Morbid obesity E66.01 GERD (gastroesophageal reflux disease) K21.9 Medical History Medical History (Updated 09/16/22 @ 06:52 by Ruby Adrian) Headache Obstructive sleep apnea JOAQUIN (obstructive sleep apnea) Restless leg syndrome Vitamin B12 deficiency Medical History Comments:: Per pt. states when she is under anesthesia she Stops breathing, thinks it is related to JOAQUIN. Surgical History Surgical History H/O bilateral salpingo-oophorectomy History of colonoscopy with polypectomy (~03/04/22) Tobacco Smoking/Tobacco Use Status: Never Passive smoking exposure: No Alcohol Alcohol Intake: never Substance Use Substance use: Never Substance use type: does not use Vital Signs and Lab Results Vital Signs Most Recent Vital Signs in EMR: Temp Pulse Resp BP Pulse Ox 37.2 C 79 16 130/69 96 09/16/22 06:49 09/16/22 06:49 09/16/22 06:49 09/16/22 06:49 09/16/22 06:49 Lab Results Blood Type / Crossmatch: No Data to Display Complete Blood Count: No Data to Display Complete Metabolic Panel: No Data to Display Liver Function Panel: No Data to Display Coagulation Panel: No Data to Display Cardiac Panel: No Data to Display Arterial Blood Gas: No Data to Display Venous Blood Gas: No Data to Display Pancreas Panel: No Data to Display Thyroid Panel: No Data to Display Infectious Disease: No Data to Display Blood Cultures: No Data to Display Toxicology Panel: No Data to Display Panel: No Data to Display Anesthesia Assessment and Plan Anesthesia History Personal History: No History of Anesthesia Complications and Other Family History: No Family History of Anesthesia Complications Exercise Tolerance Exercise Tolerance: Metabolic Equivalents>4 Cardiac & Pulmonary Exam Cardiac Exam: Normal S1/S2 Heart Sounds Pulmonary Exam: Clear Bilateral Breath Sounds Implantable Cardiac Device Does patient have a Pacemaker or an ICD?: No Airway Exam Known Difficult Airway: No Mallampati Class: 3 Mouth Opening: Normal (> 3cm) Thyromental Distance: Greater than 3 cm Neck Range of Motion: Full ROM Neck Circumference: Thick Teeth Condition: Normal Dentition ASA Classification ASA Score: ASA 3 Emergency Case?: No NPO Status NPO Status: NPO Clears >2 hours, Solids >8 hours Status Status: Negative HCG Anesthesia Plan Resuscitation Status: Full Code Anesthesia Technique: General Anesthesia Airway Planned: Endotracheal Tube Monitors Used: Standard Monitors Preoperative Comments:: 52 yo female for lap sidney. Sig PMHx: HTN, fatty liver, BMI 48, GERD (omeprazole, has been very bad the past few weeks), pre DM (metformin, a1c 6.1), anemia, JOAQUIN, b12 deficiency, RLS, never smoker/etoh. Previous Anes: - colo without issues. - lap adnexa, masked with OPA, mac 3 grade 1.
--- NOTE | 2022-09-16 05:41 | PDOC.DSDIS_ITS ---
Date of service: 09/16/22 Time of Service: 08:52 Discharge Plan Disposition Patient Disposition: HOME Condition: Good Discharge Details Reason For Visit: Cholecystectomy Attending Provider: Kiko Pastor Primary Care Provider: Tessie Phelps Home Meds and New Rx's Prescriptions: New tramadol 50 mg tablet 50 mg PO Q8H PRN (Reason: pain) Qty: 9 0RF Rx Instructions: take one tablet by mouth every 8 hours as needed for pain. This medication is addictive and should be used with caution Continued ibuprofen [Motrin IB] 200 mg tablet 200 mg PO QID PRN omeprazole 20 mg tablet,delayed release (DR/EC) 20 mg PO DAILY losartan 50 mg tablet 50 mg PO HS cyanocobalamin (vitamin B-12) 1,000 mcg capsule 1,000 mcg PO DAILY hydrocortisone 2.5 % cream with applicator 1 applic [place] DAILY PRN pramipexole [Mirapex] 0.125 mg tablet 0.25 mg PO QHS albuterol sulfate [ProAir HFA] 90 mcg/actuation HFA aerosol inhaler 2 puff inhalation Q6H PRN metformin 500 mg tablet 500 mg PO DAILY Hold Instructions: wait to see if change in diarrhea Label Comments: Pt reports HOLD cholecalciferol (vitamin D3) 25 mcg (1,000 unit) capsule 25 mcg PO DAILY ferrous gluconate 240 mg (27 mg iron) tablet 240 mg PO DAILY levonorgestrel-ethinyl estrad [Vienva] 0.1-20 mg-mcg tablet 1 tab PO HS candesartan 16 mg tablet 16 mg PO HS ascorbate calcium (vitamin C) 500 mg tablet 500 mg PO DAILY Discharge Instructions Instructions: Laparoscopic Cholecystectomy (DC) Additional Instructions: 1. Resume all of your medications. 2. Okay to use tylenol and ibuprofen over the counter as needed. 3. Use tramadol as needed for severe pain. 4. Leave bandage in place for 24 hours, then remove. 5. Shower with warm soapy water. Pat dry. Use a bandaid if needed to protect your clothing. 6. No soaking or tub baths until I see you in the office. 7. No heavy lifting until I see you in the office. 8.Call the office (or go directly to the emergency room after hours) if you notice any of the following: Develop chills (warm to touch), or if you have a thermometer and your temperature is above 101 Difficulty breathing or difficultly swallowing Persistent vomiting Any bleeding ? exceeding one tablespoon 6. Call your physician if the site where your intravenous was started becomes red, swollen, painful, and warm to touch. Referrals: Kiko Pastor MD [ [facility] STAFF PHYSICIAN] - (10-14 days for routine follow up) Activity:: Activity as Tolerated Remove Dressings/Wound Care:: 24 hours Shower/Bathe:: 24 hours Diet:: As Tolerated Discharge Orders Discharge Orders: Discharge Order (Routine); Ordered 09/16/22 Ordered By: Kiko Pastor DS: Diagnosis Discharge Diagnosis (1) Cholelithiasis: Status: Acute Asessment and Plan: Uncomplicated laparoscopic cholecystectomy Follow up in my office 10-14 days for exam
--- NOTE | 2022-09-16 05:44 | ROE_ITS ---
Date of service: 09/16/22 Time of Service: 08:53 Operative Note Operative Note DATE OF PROCEDURE: 09/16/22 PRE-OP DIAGNOSIS: symptomatic cholelithiasis POST-OP DIAGNOSIS: same PROCEDURE: laparoscopic cholecystectomy SURGEON: Kiko Pastor [employer]SEMBLER: Mell Burroughs ANESTHESIA TYPE: General LMA/ETT Refer to Anesthesia Record ESTIMATED BLOOD LOSS: 50 PATHOLOGY: other (gallbladder) TOURNIQUET TIME: 0 COMPLICATIONS: None Patient was transported to: PACU Patient's condition: stable Indications: She is 51 years old and has been experiencing mid epigastric postprandial pain for several years.? It was initially thought to be secondary to gastroesophageal reflux disease, or perhaps gastritis.? She was started on omeprazole, and did not have much success in terms of her symptoms.? In fact, the frequency and intensity of the episodes has become more severe.? She recently underwent an ultrasound of the right upper quadrant that demonstrated a 2.5 centimeters gallstone, at the gallbladder neck. Findings: Mild inflammation of the gallbladder neck and infundiblum Procedure Description: After satisfactory induction of general anesthesia, I prepped and draped the abdomen in usual fashion. Next, I began with a periumbilical incision. I dissected down to the fascia and elevated it with Wilbert clamps. I incised it sharply. Next, I passed a 12 mm operating port in the umbilical site. I secur ed it to the fascia with 0 Vicryl stitches. I then insufflated the peritoneal cavity. Next I inserted a [] scope and examined the underlying viscera. There was no evidence of injury created upon entry. I then placed the patient in some reverse Trendelenburg and left side down positioning. Then, with the assistance of the laparoscope, I used local anesthetic to anesthetize the midepigastric and 2 right upper quadrant port sites. Under the vision of the laparoscope, I passed 3 more 5 mm ports. I then grasped the gallbladder fundus and elevated cephalad. I began by dissecting the gallbladder infundibulum. I worked in a lateral to medial fashion. Once I skeletonized the cystic duct and cystic artery, with a satisfactory critical view of safety, I doubly clipped and divided them. I then used electrocautery to dissect the gallbladder off the gallbladder fossa. I passed the gallbladder into an Endo Catch bag and removed it by way of the umbilical site. I examined the surgical field. It was hemostatic. I then removed the 5 mm ports under the vision of the laparoscope. Finally, I removed the umbilical port site and closed the fascia with Vicryl stitches. Sites were irrigated, and the skin was closed with subcuticular stitches. Bandages were applied, patient was awakened from anesthesia, and transferred to the recovery unit.
[2022-09-16] MEDS: Celecoxib 200 MG CAP PO (06:54)
[2022-09-16] MEDS: Gabapentin 300 MG CAP 600 MG PO (06:54)
[2022-09-16] MEDS: Acetaminophen 500 MG TAB 1000 MG PO (06:54)
[2022-09-16] MEDS: Lactated Ringers 1,000 ML 80 ML IV (07:15)
[2022-09-16] MEDS: ceFAZolin 2 GM/50 ML BAG IVPB (07:33)
[2022-09-16] MEDS: Heparin 5,000 UNITS/ML VIAL 5000 UNITS SC (07:42)
[2022-09-16] MEDS: Bupivacaine 0.25% Pres-Free 30 ML VIAL (08:31)
--- NOTE | 2022-09-16 08:36 | GB_PTH ---
PATIENT: Veronica Spann LOC: [facility] U#:[id number] AGE/SX: 52/F ROOM: RE09/16/[address]: Kiko Pastor MD : 1970 BED: DIS: 09/16/2022 SPEC #: [id number] RECD: 09/16/22 12:47 STATUS: FERNANDO REQ #: [id number] DHRUV: 09/16/22 08:[address]: Kiko Pastor DEPT: Surgical Specimen RECD BY: Ayesha Blackman ENTERED: 09/16/22 12:47 SP TYPE: GB OTHR DR: Tessie Phelps Tissues: 1 - GALLBLADDER Procedures: GROSS AND MICRO LEVEL 3 Comments: [id number]
[2022-09-16] MEDS: HYDROmorphone 2 MG/ML SYR IVP (09:00)
[2022-09-16] MEDS: Normal Saline 10 ML VIAL IJ (09:02)
--- NOTE | 2022-09-16 09:28 | W.ANESPOSTOP ---
Postoperative Evaluation Date, Time and Location Date Performed: 09/16/22 Time Performed: 09:28 Patient Location: PACU Vital Signs Most Recent Imported Vital Signs: Most Recent Vital Signs Temp Pulse Resp BP Pulse Ox 36.4 C L 71 17 122/61 99 09/16/22 09:15 09/16/22 09:15 09/16/22 09:15 09/16/22 09:15 09/16/22 09:15 Pain Score Most Recent Pain Score: Most Recent Pain Score Pain Level 8 09/16/22 08:58 Assessment Mental Status: Awake (Alert & Oriented to Patient Baseline) Airway and Respiratory Function: Patent airway with normal (patient baseline) respiratory exam Cardiovascular Function: Hemodynamically Stable Hydration Status: Adequately Hydrated Nausea & Vomiting: No Nausea or Vomiting Pain: Pain is tolerable per patient Peripheral Nerve Block: Patient did not receive a nerve block
== END 2022-09-16 10:40 | disposition home or self-care (01) ==
PROVIDERS: PCP Family Medicine; Visit Provider Surgery
PROC: 0FT44ZZ Resection of Gallbladder, Percutaneous Endoscopic Approach (ICD-10-PCS; CPT 47562; principal; 2022-09-16 07:30)
DX: K80.10 Calculus of gallbladder with chronic cholecystitis without obstruction (principal); R73.03 Prediabetes; E66.01 Morbid (severe) obesity due to excess calories; Z68.42 Body mass index [BMI] 45.0-49.9, adult
CPT/HCPCS: 47562; 88304; J0131; J0690; J1100; J1170; J1644; J1885; J2405; J2704; J3475

== ENCOUNTER 2022-09-26 18:38 | Outpatient (REF) | payer OTHER, SELFPAY ==
[2022-09-26 20:11] LABS: Bilirubin Negative (Negative); Blood Moderate (Negative); Clarity Cloudy (Clear); Glucose Negative (Negative); Ketones Negative (Negative); Leukocyte Esterase Small (Negative); Nitrite Positive (Negative); Specific Gravity >= 1.030 (1.005-1.025); Urobilinogen 0.2 EU/dL (Up TO 0.2)
[2022-09-26 20:19] LABS: WBC >50 HPF (0-5)
[2022-09-26 20:20] LABS: C & S Indicated? Yes
== END 2022-09-26 18:39 | disposition home or self-care (01) ==
LOC: NCHCN 18:38
PROVIDERS: PCP Family Medicine; Visit Provider Family Medicine
DX: R39.15 Urgency of urination (principal)
CPT/HCPCS: 87077; 81003; 81015; 87086; 87186

== ENCOUNTER 2023-07-12 10:01 | Outpatient (REF) | payer OTHER, SELFPAY ==
[2023-07-12 15:52] LABS: Abs Immature Grans 0.03 10^3/uL (0.0-0.06); Absolute Basophil Count 0.07 10^3/uL (0.0-0.2); Absolute Lymphocyte Count 2.41 10^3/uL (1.2-3.4); Absolute Monocyte Count 0.49 10^3/uL (0.1-0.8); Absolute Neutrophil Count 5.55 10^3/uL (1.2-6.7); Basophils % 0.8; Eosinophils % 1.2; HCT 40.3 % (36.0-46.0); HGB 13.3 g/dL (11.2-15.7); Immature Grans % 0.3; Lymphocytes % 27.9; MCH 27.7 pg (27.0-33.0); MCV 84 fL (80-95); Monocytes % 5.7; Neutrophils % 64.1; Platelet Count 316 10^3/uL (130-400); RBC 4.81 10^6/uL (3.93-5.22); RDW 12.3 % (11.7-14.6); RDW-SD 37.8 fL; WBC 8.65 10^3/uL (4.4-10.8)
[2023-07-12 17:13] LABS: Ferritin 110 ng/mL (8-252)
== END 2023-07-12 10:02 | disposition home or self-care (01) ==
LOC: NCHCN 10:01
PROVIDERS: PCP Family Medicine; Visit Provider Family Medicine
DX: D50.9 Iron deficiency anemia, unspecified (principal); R73.03 Prediabetes
CPT/HCPCS: 82728; 83036; 85025

== ENCOUNTER → 2023-08-11 00:13 | Outpatient (CLI) | payer OTHER, SELFPAY ==
--- NOTE | 2023-08-11 | DI.MAMMO_ITS ---
Exam(s) MAMMO SCREENING EXAM: MAMMO SCREENING CLINICAL HISTORY: SCREENING, Z12.39, FAM HX BREAST CA, Z80.3 TECHNIQUE: Mammograms were interpreted according to the usual protocol including computer analysis w [employer] CAD system, tomosynthesis and C-view imaging. COMPARISON: 2014 through 2021 FINDINGS: The breasts are composed of mainly fatty density , Breast Density category A. No suspicious masses or suspicious microcalcifications are seen. No skin thickening or abnormal axillary lymph nodes are seen. There has been no significant change from prior exams. IMPRESSION: BI-RADS Category 1, Negative mammogram Yearly screening mammography is recommended. Breast Density - Category A, fatty density. A negative radiographic report should not delay biopsy if a dominant or clinically suspicious mass is present. Up to ten percent of cancers are not identified on mammography. A negative report may reinforce clinical impression. Adenosis and dense breasts may obscure an underlying neoplasm. False positive reports average 6 to 10%. Patient will receive a letter notifying them of these results.
== END ==
PROVIDERS: PCP Family Medicine; Visit Provider Family Medicine
DX: Z12.31 Encounter for screening mammogram for malignant neoplasm of breast (principal); Z80.3 Family history of malignant neoplasm of breast
CPT/HCPCS: 77063; 77067

== ENCOUNTER 2023-10-27 20:53 | Outpatient (REF) | payer OTHER, SELFPAY ==
[2023-10-27 20:14] LABS: Hemoglobin A1C 5.6 % (<5.7)
[2023-10-27 20:56] LABS: ALT 39 U/L (14-59); AST 21 U/L (15-37); Albumin 3.6 g/dL (3.4-5.0); Alkaline Phosphatase 86 U/L (46-116); Anion Gap 6.9 mmol/L (3-11); BUN 13 mg/dL (7-18); Bilirubin, Total 0.4 mg/dL (0.2-1.0); CO2 28.1 mmol/L (21.0-32.0); CREATININE 0.7 mg/dL (0.55-1.02); Calcium 9.2 mg/dL (8.5-10.1); Chloride 105 mmol/L (98-107); Estimated GFR 104.65 (mL/min/1.73m2); Glucose 91 mg/dL (74-106); Sodium 140 mmol/L (136-145); TSH 1.71 uIU/mL (0.36-3.74); Total Protein 6.7 g/dL (6.4-8.2); Vitamin B12 331 pg/mL (193-986)
[2023-10-27 21:19] LABS: FREE T4 0.93 ng/dL (0.76-1.46)
== END 2023-10-27 20:54 | disposition home or self-care (01) ==
LOC: NCHCN 20:53
PROVIDERS: PCP Family Medicine; Visit Provider Family Medicine
DX: R53.83 Other fatigue (principal); E53.8 Deficiency of other specified B group vitamins; R73.03 Prediabetes; K76.0 Fatty (change of) liver, not elsewhere classified
CPT/HCPCS: 80053; 82607; 83036; 84439; 84443

== ENCOUNTER 2024-07-19 15:41 | Outpatient (REF) | payer OTHER, SELFPAY ==
[2024-07-19 19:52] LABS: Bilirubin Negative (Negative); Blood Negative (Negative); Clarity Clear (Clear); Glucose Negative (Negative); Ketones Negative (Negative); Leukocyte Esterase Trace (Negative); Nitrite Negative (Negative); Specific Gravity 1.015 (1.005-1.025); Urobilinogen 0.2 mg/dL (Up to 0.2); pH 5.5 (5-8)
[2024-07-19 20:04] LABS: Bacteria Rare HPF (Negative); Epithelial Cells Few HPF (Negative); RBC 0-2 HPF (0-2); WBC 0-2 HPF (0-5)
[2024-07-19 20:05] LABS: C & S Indicated? No; Casts Negative LPF (Negative); Crystals Negative HPF (Negative); Mucus Negative (Negative)
== END 2024-07-19 15:42 | disposition home or self-care (01) ==
LOC: NCHCN 15:41
PROVIDERS: PCP Family Medicine; Visit Provider Family Medicine
DX: R10.2 Pelvic and perineal pain (principal)
CPT/HCPCS: 81003; 81015

== ENCOUNTER 2024-08-16 00:11 | Outpatient (CLI) | payer OTHER, SELFPAY ==
--- NOTE | 2024-08-16 10:25 | DI.MAMMO_ITS ---
Exam(s) MAMMO SCREENING EXAM: MAMMO SCREENING CLINICAL HISTORY: SCREENING MAMMO Z12.39. TECHNIQUE: Bilateral full field digital CC and MLO mammographic images were obtained with 3D tomosyn thesis and utilizing computer aided detection (CAD). COMPARISON: Prior mammograms dating back to 2014 were reviewed. FINDINGS: There has been no significant change in the appearance and distribution of the fibroglandular tissue. A benign-appearing microcalcification group in the left breast is unchanged from all prior mammograms . There are no new spiculated masses nor malignant appearing microcalcification groups. There is no significant architectural distortion nor skin thickening-retraction. IMPRESSION: No radiographic evidence of malignancy. BI-RADS Category 1 - Negative Breast Density - Category A - Almost entirely fatty Breast density Category C or D implies that the patient has dense breast tissue. Dense breast tissue can make it harder to find cancer on a mammogram. Dense breast tissue is also associated with an incr eased risk of breast cancer. This information about the result of the mammogram report was provided to the patient to raise their awareness. Use this report when you speak with the patient about their risks for breast cancer, which includes their family history. At that time, you may recommend additional screening tests (Ultrasoun d or MRI) as these tests may add significant information. A negative radiographic report should not delay biopsy if a dominant or clinically suspicious mass is present. Up to ten percent of cancers are not identified on mammography. A negative report may reinforce clinical impression. Adenosis and dense breasts may obscure an underlying neoplasm. False positive reports average 6 to 10%. Patient will receive a letter notifying them of these results.
== END 2024-08-16 00:31 ==
LOC: DI 00:11
PROVIDERS: PCP Family Medicine; Visit Provider Family Medicine
DX: Z12.31 Encounter for screening mammogram for malignant neoplasm of breast (principal)
CPT/HCPCS: 77063; 77067

== ENCOUNTER 2024-11-22 10:16 | Outpatient (REF) | payer OTHER, SELFPAY ==
[2024-11-22 15:20] LABS: HCT 44.2 % (36.0-46.0); HGB 13.9 g/dL (11.2-15.7); MCH 27.1 pg (27.0-33.0); MCHC 31.4 % (32.0-36.0); MCV 86 fL (80-95); MPV 10.5 fL (8.0-11.0); Platelet Count 360 10^3/uL (130-400); RBC 5.12 10^6/uL (3.93-5.22); RDW 12.4 % (11.7-14.6); RDW-SD 39.2 fL
[2024-11-22 15:33] LABS: Hemoglobin A1C 5.7 % (<5.7)
[2024-11-22 15:52] LABS: ALT 24 U/L (14-59); AST 16 U/L (15-37); Albumin 3.6 g/dL (3.4-5.0); Alkaline Phosphatase 101 U/L (46-116); Anion Gap 6.3 mmol/L (3-11); BUN 20 mg/dL (7-18); Bilirubin, Total 0.38 mg/dL (0.2-1.0); CO2 29.7 mmol/L (21.0-32.0); CREATININE 0.8 mg/dL (0.55-1.02); Calcium 9.5 mg/dL (8.5-10.1); Chloride 108 mmol/L (98-107); Glucose 87 mg/dL (74-106); Potassium 4.9 mmol/L (3.5-5.1); Sodium 144 mmol/L (136-145); Vitamin B12 358 pg/mL (193-986)
[2024-11-22 17:38] LABS: TSH (W/Ref FT4) 1.97 uIU/mL (0.36-3.74)
== END 2024-11-22 10:17 | disposition home or self-care (01) ==
LOC: NCHCN 10:16
PROVIDERS: PCP Family Medicine; Visit Provider Family Medicine
DX: K76.0 Fatty (change of) liver, not elsewhere classified (principal); R73.03 Prediabetes; E53.8 Deficiency of other specified B group vitamins; R63.5 Abnormal weight gain
CPT/HCPCS: 80053; 85027; 82607; 83036; 84443

== ENCOUNTER 2025-02-21 18:04 | Outpatient (REF) | payer OTHER, SELFPAY ==
--- NOTE | 2025-02-21 10:14 | SKI_PTH ---
PATIENT: Veronica Spann LOC: [facility] U#:[id number] AGE/SX: 54/F ROOM: RE02/21/[address]: Lane Beatty DO : 1970 BED: DIS: 02/21/2025 SPEC #: [id number] RECD: 02/21/25 18:14 STATUS: FERNANDO REQ #: [id number] DHRUV: 02/21/25 10:[address]: Lane Beatty DEPT: Surgical Specimen RECD BY: Ayesha Blackman ENTERED: 02/21/25 18:14 SP TYPE: SKI OTHR DR: Tessie Phelps Tissues: 1 - SKIN BIOPSY(SHAVE/PUNCH) Procedures: SKIN LEVEL 4 Comments: [id number]
== END 2025-02-21 18:05 | disposition home or self-care (01) ==
LOC: LBN 18:04
PROVIDERS: PCP Family Medicine; Visit Provider Otolaryngology Otolaryngology/Facial Plastic Surgery
DX: D23.9 Other benign neoplasm of skin, unspecified (principal); L81.9 Disorder of pigmentation, unspecified
CPT/HCPCS: 88305

== ENCOUNTER 2025-04-04 00:31 | Outpatient (CLI) | payer OTHER, SELFPAY ==
--- NOTE | 2025-04-04 10:58 | DI.RAD_ITS ---
Exam(s) XR HIP LT COMPLETE AP PELVIS EXAM: XR HIP LT COMPLETE AP PELVIS CLINICAL HISTORY: Trochanteric bursitis, Lt hip, M70.62. TECHNIQUE: 2D digital imaging was performed. COMPARISON: No exams were available for comparison FINDINGS: 3 views No evidence of pelvic nor hip fractures. No degenerative changes in the hips. Bone density normal. No osseous lesions IMPRESSION: No significant osseous findings. DATA REPOSITORY: RADIATION DOSE DELIVERED:
== END 2025-04-04 00:51 ==
LOC: DI 00:31
PROVIDERS: PCP Family Medicine; Visit Provider Family Medicine
DX: M70.62 Trochanteric bursitis, left hip (principal)
CPT/HCPCS: 73502

== ENCOUNTER 2025-08-22 04:18 | Outpatient (CLI) | payer OTHER, SELFPAY ==
--- NOTE | 2025-08-22 | DI.MAMMO_ITS ---
Exam(s) MAMMO SCREENING EXAM: MAMMO SCREENING CLINICAL HISTORY: SCREENING MAMMO Z12.31 TECHNIQUE: Mammograms were interpreted according to the usual protocol including computer analysis with CAD system, tomosynthesis and C-view imaging. COMPARISON: 2015 through 2023 FINDINGS: The breasts are composed of mainly fatty density , Breast Density category A. No suspicious masses or suspicious microcalcifications are seen. No skin thickening or abnormal axillary lymph nodes are seen. There has been no significant change from prior exams. IMPRESSION: BI-RADS Category 1, Negative mammogram Yearly screening mammography is recommended. Breast Density- Category A - The breast are almost entirely fatty. Breast density Category C or D implies that the patient has dense breast tissue. Dense breast tissue can make it harder to find cancer on a mammogram. Dense breast tissue is also associated with an increased risk of breast cancer. This information about the result of the mammogram report was provided to the patient to raise their awareness. Use this report when you speak with the patient about their risks for breast cancer, which includes their family history. At that time, you may recommend additional screening tests (Ultrasound or MRI) as these tests may add significant information. A negative radiographic report should not delay biopsy if a dominant or clinically suspicious mass is present. Up to ten percent of cancers are not identified on mammography. A negative report may reinforce clinical impression. Adenosis and dense breasts may obscure an underlying neoplasm. False positive reports average 6 to 10%. Patient will receive a letter notifying them of these results.
== END 2025-08-22 04:38 ==
LOC: DI 04:19
PROVIDERS: PCP Family Medicine
DX: Z12.31 Encounter for screening mammogram for malignant neoplasm of breast (principal); R92.313 Mammographic fatty tissue density, bilateral breasts
CPT/HCPCS: 77063; 77067